=== PATIENT | female | born 1980 | race Caucasian/White ===

== ENCOUNTER 2022-03-25 11:13 | Day surgery (SDC) | payer BC ==
[~2022-03-25] VITALS: Ht 157.5 cm; Wt 80.3 kg
[2022-03-25 11:17] LABS: HCG,QUAL RESULT NEGATIVE (NEGATIVE)
[2022-03-25] MEDS ORDERED: HYDROmorphone 1 MG/ML INJ. CARTRIDGE IVP PRN ×2 (14:15)
[2022-03-25] MEDS ORDERED: MEPERIDINE HCL/PF 25 MG/ML DISP.SYRIN IVP PRN (14:15)
[2022-03-25] MEDS ORDERED: METOCLOPRAMIDE HCL 10 MG/2 ML VIAL IVP PRN (14:15)
[2022-03-25] MEDS ORDERED: MIDAZOLAM HCL 5 MG/ML VIAL (VERSED) IV ONE (14:57)
[2022-03-25] MEDS ORDERED: NS 1000 ML IV.SOLN IV ONE (14:57)
[2022-03-25] MEDS ORDERED: fentaNYL CITRATE/PF 100 MCG/2 ML AMP ONE (14:57)
[2022-03-25] MEDS ORDERED: LIDOCAINE 1% 10 MG/ML, 20 ML MDV ONE (14:57)
[2022-03-25] MEDS ORDERED: NS IRRIG SOLN 5000 ML IR ONE (14:57)
[2022-03-25] MEDS ORDERED: PROPOFOL 200MG/ 20ML VIAL (DIPRIVAN) IV ONE (14:57)
[2022-03-25] MEDS ORDERED: SEVOFLURANE 15 MIN GAS INH ONE (14:57)
[2022-03-25] MEDS ORDERED: DEXAMETHASONE SOD PHOSPHATE 4 MG/ML VIAL ONE (14:57)
[2022-03-25] MEDS ORDERED: ONDANSETRON HCL 4 MG/2 ML VIAL ONE (14:57)
[2022-03-25] MEDS ORDERED: HYDROmorphone 1 MG/ML INJ. CARTRIDGE ONE (15:08)
[2022-03-25] MEDS ORDERED: SIMETHICONE 80 MG TAB.CHEW ONE (16:56)
[2022-03-25] MEDS ORDERED: KETOROLAC TROMETHAMINE 30 MG VIAL ONE (16:56)
[2022-03-25] MEDS ORDERED: OXYCODONE/ACETAMINOPHEN 5-325 TABLET PO PRN (18:00)
[2022-03-25] MEDS ORDERED: KETOROLAC TROMETHAMINE 30 MG VIAL IVP PRN (18:00)
[2022-03-25 20:00] VITALS: BP_SYST 120
[2022-03-25] MEDS ORDERED: CEFAZOLIN 2 GM IVPB PREMIX 50 ML IV ONE (22:42)
[2022-03-25] MEDS: LR 1,000 ML IV SCH (22:46)
[2022-03-25] MEDS: ceFAZolin SODIUM 2 GM in D5W 100 ML IV SCH (22:49)
[2022-03-25 23:17] VITALS: BP_SYST 120
[2022-03-26] VITALS: BP_SYST 110
[2022-03-26] MEDS: LR 1,000 ML IV SCH ×2 (00:15→06:04)
[2022-03-26 04:00] VITALS: BP_SYST 112
[2022-03-26] MEDS ORDERED: CEFAZOLIN 2 GM IVPB PREMIX 50 ML IV ONE (05:25)
[2022-03-26] MEDS: ceFAZolin SODIUM 2 GM in D5W 100 ML IV SCH (06:07)
[2022-03-26 08:00] VITALS: BP_SYST 116
[2022-03-26 12:35] VITALS: BP_SYST 102
== END 2022-03-26 13:30 | disposition home or self-care (01) ==
LOC: SDS 11:13 → SMU 11:19 → SDS 03-26 13:30
PROVIDERS: ATTEND Obstetrics & Gynecology
DX: N92.0 Excessive and frequent menstruation with regular cycle (principal); N84.0 Polyp of corpus uteri; Z90.49 Acquired absence of other specified parts of digestive tract; Z79.899 Other long term (current) drug therapy; Z20.822 Contact with and (suspected) exposure to COVID-19
CPT/HCPCS: 36415 ×2; 58558; 84703; 87081; 87426; 88305; C1819; J0690 ×3; J1100; J1170; J1885 ×2; J2001; J2250; J2405; J2704; J3010; J7030; J7060; U0003